=== PATIENT | male | born 1965 | race Caucasian/White ===

== ENCOUNTER → 2020-04-19 | Outpatient (CLI) | payer OTHER | END | disposition home or self-care (01) | LOC: OIH 14:04 | PROVIDERS: ATTEND Internal Medicine | DX: M43.17 Spondylolisthesis, lumbosacral region (principal); M25.561 Pain in right knee | CPT/HCPCS: 72100; 73560 ==

== ENCOUNTER → 2024-07-28 | Outpatient (CLI) | payer OTHER ==
--- NOTE | 2024-07-29 08:28 | HMCIMG ---
HIP UNILAT 2-3VW LEFT REASON: LEFT HIP PAIN TECHNIQUE: 2 views were obtained. FINDINGS: There is no evidence of fracture or dislocation. There is no joint effusion. The soft tissues appear unremarkable. There is no evidence of a radiopaque foreign body. IMPRESSION: No acute findings.
--- NOTE | 2024-07-29 08:28 | HMCIMG ---
EXAM: LUMBAR SPINE 2-3VWS REASON: LBP. COMPARISON: None. TECHNIQUE: 2 views of the lumbar spine were obtained. FINDINGS: There is moderate interspace narrowing at L5-S1. There is 8 mm anterior subluxation of L5 on S1, there are lucencies in the posterior elements which appear consistent with L5-S1 spondylolysis. Remaining interspaces are preserved. Vertebral body alignment is normal. There are no focal osseous lesions. There is a retrievable inferior vena cava f filter in place, there are several broken struts. Soft tissues appear otherwise unremarkable. IMPRESSION: 1. 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 2. There is some moderate narrowing of the L5-S1 disc interspace. 3. Inferior vena cava filter in place with several broken struts as described.
== END | disposition home or self-care (01) ==
LOC: RAH 11:48
PROVIDERS: ATTEND Internal Medicine
DX: S33.39XA Dislocation of other parts of lumbar spine and pelvis, initial encounter (principal); M43.16 Spondylolisthesis, lumbar region; M54.50 Low back pain, unspecified; M48.07 Spinal stenosis, lumbosacral region; X58.XXXA Exposure to other specified factors, initial encounter; Y93.89 Activity, other specified; Y92.89 Other specified places as the place of occurrence of the external cause; Y99.8 Other external cause status
CPT/HCPCS: 72100; 73502

== ENCOUNTER → 2024-08-25 | Outpatient (CLI) | payer OTHER ==
--- NOTE | 2024-08-25 11:05 | HMCIMG ---
CERV SPINE 2-3VWS HISTORY: Cervical radiculopathy COMPARISON: None FINDINGS: 3 images of cervical spine were obtained. Disc space narrowings are present at C5-6, C6-7 and C7-T1 levels. There are degenerative changes with cervical spine spondylosis. There is straightening of normal lordotic curvature which may be related to muscle spasm or positioning. No loss of vertebral height is seen. No fracture or dislocation is seen. Degenerative changes are seen. IMPRESSION: 1. No fracture is seen. DJD.
== END | disposition home or self-care (01) ==
LOC: OIH 09:58
PROVIDERS: ATTEND Internal Medicine
DX: M47.22 Other spondylosis with radiculopathy, cervical region (principal); M48.03 Spinal stenosis, cervicothoracic region
CPT/HCPCS: 72040

== ENCOUNTER → 2024-09-16 | Outpatient (CLI) | payer OTHER ==
--- NOTE | 2024-09-22 15:56 | HMCIMG ---
Exam Type: CHEST 2VWS Clinical Information: COPD Comparison: None Findings: Old healed right-sided rib fractures are seen. The lungs are clear of infiltrates. The heart is normal in size. The bony and soft tissue structures of the chest are unremarkable. Impression: Clear lungs.
== END | disposition home or self-care (01) ==
LOC: OIH 10:33
PROVIDERS: ATTEND Internal Medicine
DX: J44.9 Chronic obstructive pulmonary disease, unspecified (principal); Z87.81 Personal history of (healed) traumatic fracture
CPT/HCPCS: 71046